=== PATIENT | male | born 1975 | race Two or more races ===

== ENCOUNTER 2017-09-13 14:28 | Outpatient (CLI) | payer OTHER ==
[2017-09-13 16:15] LABS: BASOPHILS % (AUTO) 0.4 % (0-1); EOSINOPHILS # (AUTO) 0.2 X10'3 (0-0.9); EOSINOPHILS % (AUTO) 3.1 % (0-6); HEMATOCRIT 45.8 % (42.0-52.0); HEMOGLOBIN 15.6 g/dl (14.0-17.9); LYMPHOCYTES # (AUTO) 1.5 X10'3 (1.1-4.8); LYMPHOCYTES % (AUTO) 29.1 % (21-51); MEAN CORPUSCULAR VOLUME 88.1 FL (78-98); MEAN PLATELET VOLUME 8.5 FL (7.4-10.4); MONOCYTES # (AUTO) 0.4 X10'3 (0-0.9); MONOCYTES % (AUTO) 8.6 % (2-12); NEUTROPHILS # (AUTO) 3.1 X10'3 (1.8-7.7); NEUTROPHILS % (AUTO) 58.8 % (42-75); PLATELET COUNT 241 X10'3 (140-440); RED CELL DISTRIBUTION WIDTH 13.7 % (11.5-14.5); WHITE BLOOD COUNT 5.2 X10'3 (4.5-11.0)
== END 2017-09-13 23:59 ==
LOC: LAB 14:28
PROVIDERS: ATTEND Anesthesiology
DX: D50.9 Iron deficiency anemia, unspecified (principal); E34.9 Endocrine disorder, unspecified; N40.0 Benign prostatic hyperplasia without lower urinary tract symptoms; R35.1 Nocturia; E34.50 Androgen insensitivity syndrome, unspecified
CPT/HCPCS: 36415; 82670; 82679; 84153; 84402; 84403; 85025

== ENCOUNTER 2018-06-09 10:51 | Outpatient (CLI) | payer OTHER ==
[2018-06-09 11:33] LABS: BASOPHILS % (AUTO) 0.2 % (0-1); EOSINOPHILS # (AUTO) 0.1 X10'3 (0-0.9); HEMATOCRIT 50.8 % (42.0-52.0); HEMOGLOBIN 17.3 g/dl (14.0-17.9); LYMPHOCYTES # (AUTO) 1.6 X10'3 (1.1-4.8); LYMPHOCYTES % (AUTO) 24.5 % (21-51); MEAN CORPUSCULAR HEMOGLOBIN 29.7 PG (27.0-31.0); MEAN CORPUSCULAR VOLUME 87.4 FL (78-98); MONOCYTES # (AUTO) 0.3 X10'3 (0-0.9); MONOCYTES % (AUTO) 4.5 % (2-12); NEUTROPHILS # (AUTO) 4.4 X10'3 (1.8-7.7); NEUTROPHILS % (AUTO) 68.8 % (42-75); PLATELET COUNT 277 X10'3 (140-440); RED BLOOD COUNT 5.81 X10'6 (4.70-6.10); WHITE BLOOD COUNT 6.4 X10'3 (4.5-11.0)
== END 2018-06-09 23:59 | disposition home or self-care (01) ==
LOC: LAB 10:51
PROVIDERS: ATTEND Anesthesiology
DX: N40.0 Benign prostatic hyperplasia without lower urinary tract symptoms (principal); N53.9 Unspecified male sexual dysfunction; E34.9 Endocrine disorder, unspecified; D50.9 Iron deficiency anemia, unspecified; E02 Subclinical iodine-deficiency hypothyroidism; E59 Dietary selenium deficiency; E60 Dietary zinc deficiency; E29.9 Testicular dysfunction, unspecified; E29.1 Testicular hypofunction; E06.3 Autoimmune thyroiditis; E06.9 Thyroiditis, unspecified
CPT/HCPCS: 36415; 82670; 82679; 84153; 84439; 84443; 84481; 84482; 85025

== ENCOUNTER 2018-08-15 16:32 | Emergency (ER) | payer OTHER ==
[~2018-08-15] VITALS: Ht 167.6 cm; Wt 88.8 kg
[2018-08-15 16:34] VITALS: BP 163/103
== END 2018-08-15 17:22 | disposition home or self-care (01) ==
LOC: ER 16:32
DX: S61.232A Puncture wound without foreign body of right middle finger without damage to nail, initial encounter (principal); W46.1XXA Contact with contaminated hypodermic needle, initial encounter; Y93.89 Activity, other specified; Y92.238 Other place in hospital as the place of occurrence of the external cause; Y99.9 Unspecified external cause status
CPT/HCPCS: 99281

== ENCOUNTER 2019-03-11 15:51 | Outpatient (CLI) | payer OTHER ==
[2019-03-11 16:28] LABS: BASOPHILS # (AUTO) 0.1 X10'3 (0-0.2); BASOPHILS % (AUTO) 1.1 % (0-1); EOSINOPHILS # (AUTO) 0.1 X10'3 (0-0.9); HEMATOCRIT 45.9 % (42.0-52.0); HEMOGLOBIN 15.3 g/dl (14.0-17.9); LYMPHOCYTES # (AUTO) 1.7 X10'3 (1.1-4.8); LYMPHOCYTES % (AUTO) 31.2 % (21-51); MEAN CORPUSCULAR HGB CONC 33.4 g/dL (33.0-36.5); MEAN PLATELET VOLUME 8.4 FL (7.4-10.4); MONOCYTES # (AUTO) 0.3 X10'3 (0-0.9); MONOCYTES % (AUTO) 6.3 % (2-12); NEUTROPHILS # (AUTO) 3.3 X10'3 (1.8-7.7); NEUTROPHILS % (AUTO) 59.4 % (42-75); PLATELET COUNT 241 X10'3 (140-440); RED CELL DISTRIBUTION WIDTH 13.5 % (11.5-14.5); WHITE BLOOD COUNT 5.5 X10'3 (4.5-11.0)
[2019-03-11 16:37] LABS: ALANINE AMINOTRANSFERASE 34 U/L (12-78); ALBUMIN 3.8 G/DL (3.4-5.0); ALBUMIN/GLOBULIN RATIO 1.1 (1.1-1.5); ALKALINE PHOSPHATASE 56 IU/L (46-116); ANION GAP 11 (8-16); ASPARTATE AMINO TRANSFERASE 15 U/L (10-37); BILIRUBIN,TOTAL 0.3 MG/DL (0.1-1.0); BLOOD UREA NITROGEN 23 MG/DL (7-18); BUN/CREATININE RATIO 18.9 (5.4-32.0); CALCIUM 8.1 MG/DL (8.5-10.1); CHLORIDE 108 MMOL/L (99-107); CREATININE 1.22 MG/DL (0.60-1.10); GLUCOSE 112 MG/DL (70-104); POTASSIUM 3.5 MMOL/L (3.5-5.1); SODIUM 144 MMOL/L (135-145); TOTAL CARBON DIOXIDE 24.7 MMOL/L (24-32); TOTAL PROTEIN 7.3 G/DL (6.4-8.2); eGFR 65 ML/MIN
[2019-03-11 16:45] LABS: HEMOGLOBIN A1C 5.3 % (4.5-6.2)
[2019-03-13 08:20] LABS: ESTRADIOL 7.1 pg/mL (7.6-42.6)
[2019-03-13 15:42] LABS: PSA, ULTRASENSITIVE W/O SERIAL 1.65 ng/mL (0.000-4.000)
== END 2019-03-11 23:59 | disposition home or self-care (01) ==
LOC: LAB 15:51
PROVIDERS: ATTEND Anesthesiology
DX: D50.9 Iron deficiency anemia, unspecified (principal); R68.89 Other general symptoms and signs; R79.1 Abnormal coagulation profile; R73.01 Impaired fasting glucose; I10 Essential (primary) hypertension; E29.1 Testicular hypofunction; E29.9 Testicular dysfunction, unspecified; R53.81 Other malaise; R53.83 Other fatigue
CPT/HCPCS: 36415; 80053; 82670; 82679; 83036; 83735; 84153; 85025

== ENCOUNTER 2019-04-08 11:29 | Outpatient (CLI) | payer OTHER ==
[2019-04-08 12:49] LABS: BASOPHILS % (AUTO) 0.5 % (0-1); EOSINOPHILS # (AUTO) 0.1 X10'3 (0-0.9); EOSINOPHILS % (AUTO) 0.8 % (0-6); HEMATOCRIT 50.5 % (42.0-52.0); LYMPHOCYTES # (AUTO) 1.6 X10'3 (1.1-4.8); LYMPHOCYTES % (AUTO) 22.4 % (21-51); MEAN CORPUSCULAR HEMOGLOBIN 30.2 PG (27.0-31.0); MEAN CORPUSCULAR HGB CONC 33.6 g/dL (33.0-36.5); MEAN CORPUSCULAR VOLUME 89.8 FL (78-98); MEAN PLATELET VOLUME 8.4 FL (7.4-10.4); MONOCYTES # (AUTO) 0.5 X10'3 (0-0.9); MONOCYTES % (AUTO) 7.6 % (2-12); NEUTROPHILS # (AUTO) 4.8 X10'3 (1.8-7.7); NEUTROPHILS % (AUTO) 68.7 % (42-75); PLATELET COUNT 262 X10'3 (140-440); RED BLOOD COUNT 5.63 X10'6 (4.70-6.10); RED CELL DISTRIBUTION WIDTH 13.2 % (11.5-14.5)
[2019-04-08 13:03] LABS: ALANINE AMINOTRANSFERASE 36 U/L (12-78); ALKALINE PHOSPHATASE 57 IU/L (46-116); ANION GAP 12 (8-16); ASPARTATE AMINO TRANSFERASE 18 U/L (10-37); BILIRUBIN,TOTAL 0.5 MG/DL (0.1-1.0); BLOOD UREA NITROGEN 19 MG/DL (7-18); BUN/CREATININE RATIO 17.9 (5.4-32.0); CALCIUM 9.2 MG/DL (8.5-10.1); CHLORIDE 105 MMOL/L (99-107); CREATININE 1.06 MG/DL (0.60-1.10); GLUCOSE 102 MG/DL (70-104); POTASSIUM 3.8 MMOL/L (3.5-5.1); SODIUM 142 MMOL/L (135-145); TOTAL CARBON DIOXIDE 24.7 MMOL/L (24-32); TOTAL PROTEIN 7.9 G/DL (6.4-8.2); eGFR 77 ML/MIN
[2019-04-08 13:13] LABS: MAGNESIUM 1.9 MG/DL (1.5-2.4)
[2019-04-09 08:34] LABS: ESTRADIOL 19.4 pg/mL (7.6-42.6); PSA, ULTRASENSITIVE W/O SERIAL 1.7 ng/mL (0.000-4.000)
== END 2019-04-08 23:59 | disposition home or self-care (01) ==
LOC: LAB 11:29
PROVIDERS: ATTEND Anesthesiology
DX: D50.9 Iron deficiency anemia, unspecified (principal); N40.0 Benign prostatic hyperplasia without lower urinary tract symptoms; E29.1 Testicular hypofunction; R68.89 Other general symptoms and signs; R79.1 Abnormal coagulation profile; R73.01 Impaired fasting glucose; I10 Essential (primary) hypertension; E29.9 Testicular dysfunction, unspecified; R53.81 Other malaise; R53.83 Other fatigue
CPT/HCPCS: 36415; 80053; 82670; 82679; 83735; 84153; 85025

== ENCOUNTER 2019-05-14 16:24 | Outpatient (CLI) | payer OTHER ==
[2019-05-14 17:26] LABS: BASOPHILS % (AUTO) 0.5 % (0-1); EOSINOPHILS # (AUTO) 0.1 X10'3 (0-0.9); EOSINOPHILS % (AUTO) 1.5 % (0-6); HEMATOCRIT 47.5 % (42.0-52.0); HEMOGLOBIN 16.2 g/dl (14.0-17.9); LYMPHOCYTES # (AUTO) 1.8 X10'3 (1.1-4.8); LYMPHOCYTES % (AUTO) 26.4 % (21-51); MEAN CORPUSCULAR HEMOGLOBIN 30.1 PG (27.0-31.0); MEAN CORPUSCULAR HGB CONC 34.1 g/dL (33.0-36.5); MEAN CORPUSCULAR VOLUME 88.2 FL (78-98); MEAN PLATELET VOLUME 8.5 FL (7.4-10.4); MONOCYTES # (AUTO) 0.7 X10'3 (0-0.9); MONOCYTES % (AUTO) 9.8 % (2-12); NEUTROPHILS # (AUTO) 4.3 X10'3 (1.8-7.7); NEUTROPHILS % (AUTO) 61.8 % (42-75); PLATELET COUNT 265 X10'3 (140-440); RED BLOOD COUNT 5.38 X10'6 (4.70-6.10); RED CELL DISTRIBUTION WIDTH 12.7 % (11.5-14.5)
[2019-05-14 17:33] LABS: HEMOGLOBIN A1C 5.7 % (4.5-6.2)
[2019-05-14 17:47] LABS: ALANINE AMINOTRANSFERASE 42 U/L (12-78); ALBUMIN 4.1 G/DL (3.4-5.0); ALKALINE PHOSPHATASE 54 IU/L (46-116); ANION GAP 15 (8-16); ASPARTATE AMINO TRANSFERASE 19 U/L (10-37); BILIRUBIN,TOTAL 0.4 MG/DL (0.1-1.0); BLOOD UREA NITROGEN 24 MG/DL (7-18); BUN/CREATININE RATIO 20.7 (5.4-32.0); CALCIUM 8.9 MG/DL (8.5-10.1); CHLORIDE 103 MMOL/L (99-107); CREATININE 1.16 MG/DL (0.60-1.10); GLUCOSE 86 MG/DL (70-104); MAGNESIUM 2.1 MG/DL (1.5-2.4); POTASSIUM 3.8 MMOL/L (3.5-5.1); SODIUM 143 MMOL/L (135-145); TOTAL CARBON DIOXIDE 24.8 MMOL/L (24-32); TOTAL PROTEIN 8.2 G/DL (6.4-8.2); eGFR 69 ML/MIN
[2019-05-16 05:16] LABS: PSA, ULTRASENSITIVE W/O SERIAL 1.38 ng/mL (0.000-4.000); THIIODOTHRONINE, FREE, SERUM 3.4 pg/mL (2.0-4.4)
[2019-05-16 08:11] LABS: ESTRADIOL 8.2 pg/mL (7.6-42.6)
== END 2019-05-14 23:59 | disposition home or self-care (01) ==
LOC: LAB 16:24
PROVIDERS: ATTEND Anesthesiology
DX: D50.9 Iron deficiency anemia, unspecified (principal); R68.89 Other general symptoms and signs; R79.1 Abnormal coagulation profile; E06.3 Autoimmune thyroiditis; E03.9 Hypothyroidism, unspecified; I10 Essential (primary) hypertension; N40.0 Benign prostatic hyperplasia without lower urinary tract symptoms; E29.1 Testicular hypofunction; E29.9 Testicular dysfunction, unspecified; R73.01 Impaired fasting glucose; R53.81 Other malaise; R53.83 Other fatigue
CPT/HCPCS: 36415; 80053; 82670; 82679; 83036; 83735; 84153; 84439; 84443; 84481; 84482; 85025

== ENCOUNTER 2019-07-01 09:45 | Outpatient (CLI) | payer OTHER ==
[2019-07-01 10:24] LABS: BASOPHILS % (AUTO) 0.3 % (0-1); EOSINOPHILS # (AUTO) 0.1 X10'3 (0-0.9); EOSINOPHILS % (AUTO) 2.2 % (0-6); HEMATOCRIT 45.9 % (42.0-52.0); HEMOGLOBIN 15.7 g/dl (14.0-17.9); LYMPHOCYTES # (AUTO) 1.6 X10'3 (1.1-4.8); LYMPHOCYTES % (AUTO) 28.7 % (21-51); MEAN CORPUSCULAR HEMOGLOBIN 30.1 PG (27.0-31.0); MEAN CORPUSCULAR HGB CONC 34.2 g/dL (33.0-36.5); MEAN CORPUSCULAR VOLUME 88.1 FL (78-98); MONOCYTES # (AUTO) 0.4 X10'3 (0-0.9); MONOCYTES % (AUTO) 7.1 % (2-12); NEUTROPHILS # (AUTO) 3.5 X10'3 (1.8-7.7); NEUTROPHILS % (AUTO) 61.7 % (42-75); PLATELET COUNT 229 X10'3 (140-440); RED BLOOD COUNT 5.22 X10'6 (4.70-6.10); RED CELL DISTRIBUTION WIDTH 13.3 % (11.5-14.5); WHITE BLOOD COUNT 5.7 X10'3 (4.5-11.0)
[2019-07-01 10:40] LABS: ALANINE AMINOTRANSFERASE 37 U/L (12-78); ALBUMIN 3.8 G/DL (3.4-5.0); ALBUMIN/GLOBULIN RATIO 1.1 (1.1-1.5); ALKALINE PHOSPHATASE 51 IU/L (46-116); ANION GAP 10 (8-16); ASPARTATE AMINO TRANSFERASE 17 U/L (10-37); BILIRUBIN,TOTAL 0.4 MG/DL (0.1-1.0); BLOOD UREA NITROGEN 17 MG/DL (7-18); CALCIUM 9.1 MG/DL (8.5-10.1); CHLORIDE 107 MMOL/L (99-107); CREATININE 1.06 MG/DL (0.60-1.10); GLUCOSE 104 MG/DL (70-104); MAGNESIUM 1.8 MG/DL (1.5-2.4); SODIUM 142 MMOL/L (135-145); TOTAL PROTEIN 7.4 G/DL (6.4-8.2); eGFR 77 ML/MIN
[2019-07-02 06:19] LABS: VITAMIN D, 25-HYDROXY 39.3 ng/mL (30.0-100.0)
[2019-07-02 07:12] LABS: ESTRADIOL <5.0 pg/mL (7.6-42.6)
[2019-07-03 13:10] LABS: ESTRONE, SERUM 61 pg/mL (15-65)
== END 2019-07-01 23:59 | disposition home or self-care (01) ==
LOC: LAB 09:45
PROVIDERS: ATTEND Anesthesiology
DX: I10 Essential (primary) hypertension (principal); N40.0 Benign prostatic hyperplasia without lower urinary tract symptoms; E29.1 Testicular hypofunction; E55.9 Vitamin D deficiency, unspecified; D50.9 Iron deficiency anemia, unspecified; R68.89 Other general symptoms and signs; R73.9 Hyperglycemia, unspecified
CPT/HCPCS: 36415; 80053; 82306; 82670; 82679; 83735; 84153; 85025

== ENCOUNTER 2019-11-11 14:10 | Outpatient (CLI) | payer OTHER ==
[2019-11-11 15:03] LABS: BASOPHILS % (AUTO) 0.7 % (0-1); EOSINOPHILS # (AUTO) 0.2 X10'3 (0-0.9); EOSINOPHILS % (AUTO) 2.8 % (0-6); HEMATOCRIT 48.1 % (42.0-52.0); HEMOGLOBIN 16.1 g/dl (14.0-17.9); LYMPHOCYTES # (AUTO) 1.7 X10'3 (1.1-4.8); LYMPHOCYTES % (AUTO) 30.5 % (21-51); MEAN CORPUSCULAR HEMOGLOBIN 29.3 PG (27.0-31.0); MEAN CORPUSCULAR HGB CONC 33.4 g/dL (33.0-36.5); MEAN CORPUSCULAR VOLUME 87.7 FL (78-98); MEAN PLATELET VOLUME 8.4 FL (7.4-10.4); MONOCYTES # (AUTO) 0.5 X10'3 (0-0.9); MONOCYTES % (AUTO) 9.8 % (2-12); NEUTROPHILS # (AUTO) 3.1 X10'3 (1.8-7.7); NEUTROPHILS % (AUTO) 56.2 % (42-75); PLATELET COUNT 242 X10'3 (140-440); RED BLOOD COUNT 5.49 X10'6 (4.70-6.10); RED CELL DISTRIBUTION WIDTH 13.1 % (11.5-14.5); WHITE BLOOD COUNT 5.6 X10'3 (4.5-11.0)
[2019-11-11 15:30] LABS: ALANINE AMINOTRANSFERASE 35 U/L (12-78); ALBUMIN 3.8 G/DL (3.4-5.0); ALBUMIN/GLOBULIN RATIO 1.1 (1.1-1.5); ALKALINE PHOSPHATASE 56 IU/L (46-116); ANION GAP 11 (8-16); ASPARTATE AMINO TRANSFERASE 21 U/L (10-37); BILIRUBIN,TOTAL 0.4 MG/DL (0.1-1.0); CHLORIDE 106 MMOL/L (99-107); CREATININE 0.97 MG/DL (0.60-1.10); GLUCOSE 90 MG/DL (70-104); MAGNESIUM 2.2 MG/DL (1.5-2.4); SODIUM 142 MMOL/L (135-145); TOTAL CARBON DIOXIDE 25.2 MMOL/L (24-32); TOTAL PROTEIN 7.3 G/DL (6.4-8.2); eGFR 84 ML/MIN
[2019-11-11 15:37] LABS: BLOOD UREA NITROGEN 18 MG/DL (7-18); BUN/CREATININE RATIO 18.6 (5.4-32.0)
[2019-11-13 07:09] LABS: VITAMIN D, 25-HYDROXY 24.2 ng/mL (30.0-100.0)
[2019-11-13 08:11] LABS: THIIODOTHRONINE, FREE, SERUM 3.1 pg/mL (2.0-4.4)
[2019-11-13 13:11] LABS: ESTRADIOL <5.0 pg/mL (7.6-42.6)
== END 2019-11-11 23:59 | disposition home or self-care (01) ==
LOC: LAB 14:10
PROVIDERS: ATTEND Anesthesiology
DX: Z13.9 Encounter for screening, unspecified (principal); D50.9 Iron deficiency anemia, unspecified; N40.0 Benign prostatic hyperplasia without lower urinary tract symptoms; R53.83 Other fatigue; R53.81 Other malaise; E06.3 Autoimmune thyroiditis; E06.9 Thyroiditis, unspecified; E03.9 Hypothyroidism, unspecified; I10 Essential (primary) hypertension; E29.1 Testicular hypofunction; E29.9 Testicular dysfunction, unspecified; E55.9 Vitamin D deficiency, unspecified; R68.89 Other general symptoms and signs; R79.0 Abnormal level of blood mineral; R73.01 Impaired fasting glucose
CPT/HCPCS: 36415; 80053; 82306; 82670; 82679; 83735; 84153; 84439; 84443; 84481; 84482; 85025

== ENCOUNTER 2020-03-19 08:28 | Day surgery (SDC) | payer BC ==
[~2020-03-19] VITALS: Ht 167.6 cm; Wt 84.5 kg
[~2020-03-19 08:28] MED LIST: MIDAZolam 5mg/5ml vial ONE; fentaNYL/PF 50MCG/1 ML 2ML syringe ONE
[2020-03-19 08:30] VITALS: BP 153/92
[2020-03-19] MEDS ORDERED: NO HOME MEDS (08:53)
[2020-03-19 09:40] VITALS: BP 134/80
[2020-03-19 09:50] VITALS: BP 127/78
[2020-03-19 10:00] VITALS: BP 128/75
[2020-03-19] MEDS ORDERED: METF500T3 PO (10:17)
[2020-03-19] MEDS ORDERED: LEVO100T PO (10:18)
[2020-03-19] MEDS ORDERED: DILT180C53 PO (10:19)
[2020-03-19] MEDS ORDERED: WARF3TAB56 PO (10:20)
[2020-03-19] MEDS ORDERED: POTA-82 PO (10:20)
[2020-03-19] MEDS ORDERED: OMEP-50 PO (10:21)
[2020-03-19] MEDS ORDERED: ATOR40TA71 PO (10:22)
[2020-03-19] MEDS ORDERED: MAGN400C PO (10:23)
[2020-03-19] MEDS ORDERED: ALBU18HF2 INH (10:23)
[2020-03-19] MEDS ORDERED: FERR236T3 PO (10:24)
== END 2020-03-19 10:20 | disposition home or self-care (01) ==
LOC: GI LAB 08:28
PROVIDERS: ATTEND Internal Medicine Gastroenterology
DX: Z12.11 Encounter for screening for malignant neoplasm of colon (principal); K64.8 Other hemorrhoids; Z80.0 Family history of malignant neoplasm of digestive organs
CPT/HCPCS: 45378; 99152; J2250; J3010; J7040; A4620

== ENCOUNTER 2020-06-30 08:04 | Outpatient (CLI) | payer BC ==
[~2020-06-30 08:04] MED LIST changes: +ALBU18HF2 INH; +ATOR40TA71 PO; +DILT180C53 PO; +FERR236T3 PO; +LEVO100T PO; +MAGN400C PO; +METF500T3 PO; -MIDAZolam 5mg/5ml vial ONE; +OMEP-50 PO; +POTA-82 PO; +WARF3TAB56 PO; -fentaNYL/PF 50MCG/1 ML 2ML syringe ONE
[2020-06-30 09:18] LABS: BASOPHILS % (AUTO) 0.5 % (0-1); EOSINOPHILS # (AUTO) 0.1 X10'3 (0-0.9); EOSINOPHILS % (AUTO) 2.2 % (0-6); HEMATOCRIT 49.9 % (42.0-52.0); HEMOGLOBIN 16.6 g/dl (14.0-17.9); LYMPHOCYTES # (AUTO) 1.4 X10'3 (1.1-4.8); LYMPHOCYTES % (AUTO) 25.7 % (21-51); MEAN CORPUSCULAR HEMOGLOBIN 30.1 PG (27.0-31.0); MEAN CORPUSCULAR HGB CONC 33.2 g/dL (33.0-36.5); MEAN CORPUSCULAR VOLUME 90.5 FL (78-98); MONOCYTES # (AUTO) 0.4 X10'3 (0-0.9); MONOCYTES % (AUTO) 7.6 % (2-12); NEUTROPHILS # (AUTO) 3.6 X10'3 (1.8-7.7); PLATELET COUNT 328 X10'3 (140-440); RED BLOOD COUNT 5.51 X10'6 (4.70-6.10); RED CELL DISTRIBUTION WIDTH 13.4 % (11.5-14.5); WHITE BLOOD COUNT 5.6 X10'3 (4.5-11.0)
[2020-06-30 09:21] LABS: HEMOGLOBIN A1C 5.5 % (4.5-6.2)
[2020-06-30 09:31] LABS: ALANINE AMINOTRANSFERASE 41 U/L (12-78); ALBUMIN 3.7 G/DL (3.4-5.0); ALKALINE PHOSPHATASE 32 IU/L (46-116); ANION GAP 8 (8-16); ASPARTATE AMINO TRANSFERASE 22 U/L (10-37); BILIRUBIN,TOTAL 0.5 MG/DL (0.1-1.0); BLOOD UREA NITROGEN 15 MG/DL (7-18); BUN/CREATININE RATIO 14.3 (5.4-32.0); CALCIUM 8.3 MG/DL (8.5-10.1); CHLORIDE 106 MMOL/L (99-107); CHOL/HDL RATIO 12.9 (0.00-4.99); CHOLESTEROL 284 MG/DL (0-200); CREATININE 1.05 MG/DL (0.60-1.10); GLUCOSE 95 MG/DL (70-104); HDL CHOLESTEROL 22 MG/DL (35-60); LDL CHOLESTEROL 236 MG/DL (50-100); MAGNESIUM 2.2 MG/DL (1.5-2.4); POTASSIUM 4.2 MMOL/L (3.5-5.1); SODIUM 139 MMOL/L (135-145); TOTAL CARBON DIOXIDE 25.1 MMOL/L (24-32); TOTAL PROTEIN 7.4 G/DL (6.4-8.2); TRIGLYCERIDES 117 MG/DL (20-135); eGFR 77 ML/MIN
[2020-07-01 14:54] LABS: ESTRADIOL 83.8 pg/mL (7.6-42.6); PSA, ULTRASENSITIVE W/O SERIAL 5.02 ng/mL (0.000-4.000); THIIODOTHRONINE, FREE, SERUM 3.2 pg/mL (2.0-4.4)
== END 2020-06-30 23:59 | disposition home or self-care (01) ==
LOC: LAB 08:04
PROVIDERS: ATTEND Orthopaedic Surgery Hand Surgery
DX: Z13.21 Encounter for screening for nutritional disorder (principal); I10 Essential (primary) hypertension; R73.01 Impaired fasting glucose; R68.89 Other general symptoms and signs; D50.9 Iron deficiency anemia, unspecified; R79.1 Abnormal coagulation profile; N40.0 Benign prostatic hyperplasia without lower urinary tract symptoms; E55.9 Vitamin D deficiency, unspecified; R53.81 Other malaise; R53.83 Other fatigue; E78.5 Hyperlipidemia, unspecified; E06.3 Autoimmune thyroiditis; E06.9 Thyroiditis, unspecified; E03.9 Hypothyroidism, unspecified
CPT/HCPCS: 36415; 80053; 80061; 82306; 82670; 82679; 83036; 83735; 84153; 84410; 84439; 84443; 84481; 84482; 85025